=== PATIENT | male | born 1955 | race African-American/Black ===

== ENCOUNTER 2017-08-03 20:55 | Observation (INO) | payer MEDICAID ==
[~2017-08-03] VITALS: Ht 180.3 cm; Wt 100.0 kg
[~2017-08-03 20:55] MED LIST: ALBUAER3 INH; ASPI81TA11 PO; ATOR1TAB18 PO; BACL10TA PO; METO-309 PO; NAPR500 PO; NIFE1TAB86 PO; NITR1SUB3 SL; OXYC-395 PO
[2017-08-03 20:56] VITALS: BP 189/109; PULSE 83; RESP 20; TEMP 97.9; O2SAT 98
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
[2017-08-03 21:09] VITALS: BP 184/110; PULSE 59; RESP 18; TEMP 97.5; O2SAT 99
[2017-08-03 21:13] VITALS: BP 184/110; O2SAT 98
[2017-08-03] MEDS ORDERED: cloNIDine HCL 0.1 MG TAB PO ONE (21:15)
[2017-08-03] MEDS ORDERED: ONDANSETRON HCL 4 MG/2 ML VIAL IV PUSH ONE (21:15)
[2017-08-03] MEDS ORDERED: TICA1TAB PO (21:15)
[2017-08-03] MEDS ORDERED: SODIUM CHLORIDE 0.9% FLUSH 10 ML FLUSH IVF PRN (21:15)
[2017-08-03] MEDS ORDERED: MORPHINE SULFATE 4 MG/ML INJ IV PUSH ONE ×2 (21:15→22:15)
--- NOTE | 2017-08-03 21:36 | RADRPT ---
EXAM DATE/TIME: 08/03/2017 21:25 [facility] COMPARISON: CHEST SINGLE AP, November 07, 2016, 11:43. INDICATIONS : Chest pain MEDICAL HISTORY : Coronary artery disease. SURGICAL HISTORY : Pacemaker. Fusion, cervical. ENCOUNTER: Initial ACUITY: 1 day PAIN SCORE: 4/10 LOCATION: Bilateral chest FINDINGS: A single view of the chest demonstrates the lungs to be symmetrically aerated without evidence of mas s, infiltrate or effusion. The cardiomediastinal contours are unremarkable. Osseous structures are intact with stable degenerative spurring of the dorsal spine. Anterior fixation of the lower cervical spine. Left subclavian bipolar pacer is radiographically intact. CONCLUSION: No acute cardiopulmonary process. Mat Jose MD on August 03, 2017 at 21:34 Board Certified Radiologist. This report was verified electronically.
[2017-08-03 21:49] LABS: APTT (PATIENT) 25.5 SEC (24.3-30.1); INTERNATIONAL NORMALIZED RATIO 0.9 RATIO; PROTHROMBIN TIME - PATIENT 10.3 SEC (9.8-11.6)
[2017-08-03 21:51] LABS: ANION GAP 7 MEQ/L (5-15); AUTOMATED NEUTROPHIL # 2.7 TH/MM3 (1.8-7.7); BASOPHIL % 0.9 % (0.0-2.0); BICARBONATE 25.8 MEQ/L (21.0-32.0); BLOOD UREA NITROGEN 13 MG/DL (7-18); CHLORIDE 108 MEQ/L (98-107); EOSINOPHIL # 0.2 TH/MM3 (0-0.4); EOSINOPHIL % 3.4 % (0.0-4.0); GLOMERULAR FILTRATION RATE 93 ML/MIN (>89); HEMATOCRIT 41.5 % (39.0-51.0); HEMO FLAGS DIFF FINAL; LYMPH % 35.4 % (9.0-44.0); LYMPHOCYTE # 1.9 TH/MM3 (1.0-4.8); MAGNESIUM 2.1 MG/DL (1.5-2.5); MEAN CELL VOLUME 95.1 FL (80.0-100.0); MEAN CORPUSCULAR HEMOGLOBIN 32.2 PG (27.0-34.0); MEAN CORPUSCULAR HGB CONC 33.9 % (32.0-36.0); MONO % 9.9 % (0.0-8.0); NEUT % 50.4 % (16.0-70.0); PLATELET COUNT 175 TH/MM3 (150-450); RED BLOOD COUNT 4.37 MIL/MM3 (4.50-5.90); RED CELL DISTRIBUTION WIDTH 13.3 % (11.6-17.2); SODIUM (NA) 141 MEQ/L (136-145); WHITE BLOOD COUNT 5.3 TH/MM3 (4.0-11.0)
[2017-08-03 21:55] LABS: CREATINE KINASE 496 U/L (39-308)
[2017-08-03 22:25] VITALS: BP 170/80; PULSE 59; RESP 16; O2SAT 99
[2017-08-03] MEDS ORDERED: ONDANSETRON HCL 4 MG/2 ML VIAL IV PUSH PRN (23:00)
[2017-08-03] MEDS ORDERED: SODIUM CHLORIDE 0.9% FLUSH 10 ML FLUSH IV FLUSH PRN (23:00)
[2017-08-03 23:06] VITALS: O2SAT 98
[2017-08-04 01:24] LABS: CREATINE KINASE 385 U/L (39-308)
[2017-08-04 01:35] VITALS: BP 166/87; PULSE 84; RESP 18; TEMP 98.4; O2SAT 97
[2017-08-04 01:37] LABS: CKMB 3.6 NG/ML (0.5-3.6)
[2017-08-04 02:20] VITALS: PULSE 60
[2017-08-04] MEDS: NITROGLYCERIN 0.4 MG SL 25 TABS/BTL SL PRN ×2 (03:59→04:59)
[2017-08-04 04:01] VITALS: PULSE 60
[2017-08-04 04:15] LABS: CREATINE KINASE 389 U/L (39-308)
[2017-08-04 04:27] LABS: CKMB 3.9 NG/ML (0.5-3.6)
[2017-08-04 07:17] VITALS: BP 132/88; PULSE 60; RESP 16; TEMP 98.2; O2SAT 99
[2017-08-04] MEDS ORDERED: SODIUM CHLORIDE 0.9% FLUSH 10 ML FLUSH IV FLUSH SCH (09:00)
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
[2017-08-04] MEDS ORDERED: METOPROLOL TARTRATE 50 MG TAB PO SCH (10:00)
[2017-08-04] MEDS ORDERED: KETOROLAC TROMETHAMINE 30 MG/ML (IVP) VIAL IV PUSH ONE (10:00)
[2017-08-04] MEDS ORDERED: ATORVASTATIN 80 MG TAB PO SCH (10:00)
[2017-08-04] MEDS ORDERED: NIFEdipine 60 MG SUSTAINED RELEASE TAB PO SCH (10:00)
[2017-08-04] MEDS ORDERED: TICAGRELOR 60 MG TAB PO SCH (10:00)
[2017-08-04 10:17] VITALS: PULSE 63
[2017-08-04 11:42] VITALS: BP 131/86; PULSE 62; RESP 16; TEMP 97.6; O2SAT 98
--- NOTE | 2017-08-04 13:21 | HHI.DCPOC ---
Discharge Care Plan Diagnosis: (1) Musculoskeletal chest pain (2) Hx of coronary artery disease (3) Chronic back pain (4) Tobacco abuse (5) Hypertension Goals to Promote Your Health * To prevent worsening of your condition and complications * To maintain your health at the optimal level Directions to Meet Your Goals Take your medications as prescribed Follow your dietary instruction Follow activity as directed Keep your appointments as scheduled Take your immunizations and boosters as scheduled If your symptoms worsen call your PCP, if no PCP go to Urgent Care Center or Emergency Room Smoking is Dangerous to Your Health. Avoid second hand smoke Call the 24-hour hour crisis hotline for domestic abuse at Suzie Fontenot Aug 04, 2017 13:21
--- NOTE | 2017-08-04 13:29 | EKG ---
Date Performed: 08/04/2017 Time Performed: 03:30:05 PTAGE: 61 years EKG: ELECTRONIC ATRIAL PACEMAKER MARKED LEFT AXIS DEVIATION RIGHT VENTRICULAR CONDUCTION DELAY M ODERATE T-WAVE ABNORMALITY, CONSIDER LATERAL ISCHEMIA NON SPECIFIC T WAVE ABNORMALITY, CONSIDER INFER IOR WALL ISCHEMIA ABNORMAL ECG WITH NO SIG CHANGE PREVIOUS TRACING : 08/04/2017 00.24 DOCTOR: Neville Patel Interpretating Date/Time 08/04/2017 13:29:11
--- NOTE | 2017-08-04 13:29 | EKG ---
Date Performed: 08/04/2017 Time Performed: 00:24:03 PTAGE: 61 years EKG: ELECTRONIC ATRIAL PACEMAKER MARKED LEFT AXIS DEVIATION INCOMPLETE RIGHT BUNDLE BRANCH BLOCK MODERATE T-WAVE ABNORMALITY, CONSIDER LATERAL ISCHEMIA MODERATE T-WAVE ABNORMALITY, CONSIDER INFERIO R ISCHEMIA ABNORMAL EKG AGREE BUT NO SIG CHANGE PREVIOUS TRACING : 08/03/2017 21.05 DOCTOR: Neville Patel Interpretating Date/Time 08/04/2017 13:27:14
--- NOTE | 2017-08-04 13:29 | EKG ---
Date Performed: 08/03/2017 Time Performed: 21:05:03 PTAGE: 61 years EKG: ELECTRONIC ATRIAL PACEMAKER MARKED LEFT AXIS DEVIATION POSSIBLE RIGHT VENTRICULAR CONDUCTIO N DELAY NONSPECIFIC T-WAVE ABNORMALITY ABNORMAL ECG AGREE WITH NO SIG CHANGE PREVIOUS TRACING : 11/07/2016 17.23 DOCTOR: Neville Patel Interpretating Date/Time 08/04/2017 13:27:47
== END 2017-08-04 14:51 | disposition home or self-care (01) ==
LOC: NEPE 20:55 → NEDA 22:06 → NEPFCDU 23:03
PROVIDERS: ADMIT Internal Medicine Interventional Cardiology; ATTEND Internal Medicine Interventional Cardiology
DX: R07.89 Other chest pain (principal); I25.10 Atherosclerotic heart disease of native coronary artery without angina pectoris; R42 Dizziness and giddiness; R11.0 Nausea; E78.00 Pure hypercholesterolemia, unspecified; H40.9 Unspecified glaucoma; I10 Essential (primary) hypertension; G89.29 Other chronic pain; M54.9 Dorsalgia, unspecified; F17.200 Nicotine dependence, unspecified, uncomplicated; Z95.5 Presence of coronary angioplasty implant and graft
CPT/HCPCS: 71010; 80048; 82550; 82552; 83735; 84484; 85025; 85610; 85730; 93005; 96374; 96375; 96376; 99285; G0378; J1885; J2270; J2405

== ENCOUNTER 2017-08-08 10:28 | Emergency (ER) | payer MEDICAID ==
[~2017-08-08] VITALS: Ht 180.3 cm; Wt 100.0 kg
[~2017-08-08 10:28] MED LIST changes: -ALBUAER3 INH; -BACL10TA PO; +TICA1TAB PO
[2017-08-08 10:29] VITALS: BP 164/100; PULSE 66; RESP 17; TEMP 98.4; O2SAT 98
[2017-08-08] MEDS ORDERED: GADODIAMIDE PF 287 MG/ML 20 ML VIAL (for RAD MRI) IV PUSH ONE (10:29)
[2017-08-08] MEDS ORDERED: MORPHINE SULFATE 4 MG/ML INJ IV PUSH ONE (11:30)
[2017-08-08] MEDS ORDERED: ONDANSETRON HCL 4 MG/2 ML VIAL IV PUSH ONE (11:30)
[2017-08-08 11:31] VITALS: BP 128/79; PULSE 59; RESP 16; O2SAT 100
--- NOTE | 2017-08-08 11:45 | PD ---
HPI Chief Complaint: Complaint Time Seen by Provider: 11:14 Travel History International Travel<30 days: No Contact w/Intl Traveler<30days: No Traveled to known affect area: No History of Present Illness HPI 61-year-old male presents to the emergency department for evaluation of urinary and bowel incontinence as started approximately 2 days ago. Patient does state that he has high urinary consult past, but never like this before for. He states that he usually he would have the urge to go. However, he has no urge and will just urinated in his pants. The patient states he has had 2 surgeries on his C-spine and L-spine. He reports hardware in his back. He states his neurosurgeon is in [place]. Patient states his back pain has been worsening and reports increasing weakness in his right lower extremity. Patient denies any fevers or chills. No chest pain or shortness breath. No abdominal pain, nausea, vomiting, diarrhea. Patient denies any history of IV drug use. He does report history of [place], cardiac pacemaker, hypertension. He states that he has had an MRI since having his pacemaker and. He has the card for his pacemaker [employer] will be notified. PFSH Past Medical History Hx Anticoagulant Therapy: Yes Heart Rhythm Problems: No Cardiac Catheterization: Yes Cardiovascular Problems: Yes High Cholesterol: Yes Chest Pain: Yes Congestive Heart Failure: No Diabetes: No Glaucoma: Yes Heparin Induced Thrombocytopen: No Hypertension: Yes Tetanus Vaccination: > 5 Years Influenza Vaccination: Yes Past Surgical History Abdominal Surgery: Yes (hernia) Cardiac Surgery: Yes (pacer) Coronary Artery Bypass Graft: No Coronary Stent: Yes Pacemaker: Yes Family History Family Myocardial Infarction: Yes (FATHER) Social History Alcohol Use: No Tobacco Use: Yes (2 cigs/day) Substance Use: Yes (marijuana occasionally) Allergies-Medications (Allergen,Severity, Reaction): Coded Allergies: acetaminophen (Unverified Allergy, Unknown, 08/08/17) pt states "they say my liver is acting up so they dont want me taking tylenol" Reported Meds & Prescriptions Reported Meds & Active Scripts Active Reported Brilinta (Ticagrelor) 60 Mg Tab 40 Mg PO DAILY Aspirin EC (Aspirin) 81 Mg Tabdr 81 Mg PO DAILY Oxycodone (Oxycodone HCl) 10 Mg Tab 10 Mg PO Q6HR Nitroglycerin SL (Nitroglycerin) 0.4 Mg Subl 0.4 Mg SL DIRECTED PRN ONE TABLET UNDER THE TONGUE NEEDED FOR CHEST PAIN, MAY REPEAT EVERY FIVE MINUTES FOR A TOTAL OF 3 DOSES OR CALL 911 IF NO RELIEF Atorvastatin (Atorvastatin Calcium) 80 Mg Tab 80 Mg PO DAILY Lopressor (Metoprolol Tartrate) 50 Mg Tab 50 Mg PO BID Procardia XL (Nifedipine) 60 Mg Tab 60 Mg PO DAILY Review of Systems Except as stated in HPI: all other systems reviewed are Neg Physical Exam Narrative GENERAL: Well-nourished, well-developed male patient, afebrile. SKIN: Focused skin assessment warm/dry. HEAD: Normocephalic. Atraumatic. EYES: No scleral icterus. No injection or drainage. NECK: Supple, trachea midline. No JVD or lymphadenopathy. CARDIOVASCULAR: Regular rate and rhythm without murmurs, gallops, or rubs. RESPIRATORY: Breath sounds equal bilaterally. No accessory muscle use. Lungs sounds are clear to auscultation. GASTROINTESTINAL: Abdomen soft, non-tender, nondistended. MUSCULOSKELETAL: No cyanosis, or edema. Bilateral upper lower extremity strength 5/5. BACK: Nontender without obvious deformity. No CVA tenderness. Patient has tenderness to palpation of the midline cervical, thoracic, lumbar spine. RECTAL EXAM: No masses or tenderness, stool is brown. Rectal tone is diminished when patient is asked to squeeze. Data Data Last Documented VS Vital Signs Date Time Temp Pulse Resp B/P (MAP) Pulse Ox O2 Delivery O2 Flow Rate FiO2 08/08/17 16:53 72 18 151/90 (110) 99 08/08/17 12:24 Room Air 08/08/17 10:29 98.4 Orders Orders Ecg Monitoring (08/08/17 11:28) Iv Access Insert/Monitor (08/08/17 11:28) Oximetry (08/08/17 11:28) Act Partial Throm Time (Ptt) (08/08/17 11:28) Complete Blood Count With Diff (08/08/17 11:28) Comprehensive Metabolic Panel (08/08/17 11:28) Prothrombin Time / Inr (Pt) (08/08/17 11:28) Urinalysis - C+S If Indicated (08/08/17 11:28) Cath For Specimen (08/08/17 11:28) Ondansetron Inj (Zofran Inj) (08/08/17 11:30) Morphine Inj (Morphine Inj) (08/08/17 11:30) Mri C Spine W&W/O Contrast (08/08/17 ) Mri L Spine W&W/O Contrast (08/08/17 ) Mri T Spine W & W/O Contrast (08/08/17 ) Gadodiamide Pf Inj (Omniscan Pf Inj) (08/08/17 10:29) Radiology Film Requests (08/08/17 ) Labs Laboratory Tests Test 08/08/17 11:26 08/08/17 11:50 White Blood Count 5.5 TH/MM3 Red Blood Count 4.43 MIL/MM3 Hemoglobin 14.1 GM/DL Hematocrit 41.4 % Mean Corpuscular Volume 93.5 FL Mean Corpuscular Hemoglobin 31.9 PG Mean Corpuscular Hemoglobin Concent 34.1 % Red Cell Distribution Width 13.4 % Platelet Count 179 TH/MM3 Mean Platelet Volume 8.7 FL Neutrophils (%) (Auto) 62.3 % Lymphocytes (%) (Auto) 25.2 % Monocytes (%) (Auto) 8.2 % Eosinophils (%) (Auto) 3.5 % Basophils (%) (Auto) 0.8 % Neutrophils # (Auto) 3.5 TH/MM3 Lymphocytes # (Auto) 1.4 TH/MM3 Monocytes # (Auto) 0.5 TH/MM3 Eosinophils # (Auto) 0.2 TH/MM3 Basophils # (Auto) 0.0 TH/MM3 CBC Comment DIFF FINAL Differential Comment Prothrombin Time 10.3 SEC Prothromb Time International Ratio 0.9 RATIO Activated Partial Thromboplast Time 26.1 SEC Blood Urea Nitrogen 10 MG/DL Creatinine 0.96 MG/DL Random Glucose 95 MG/DL Total Protein 8.5 GM/DL Albumin 4.2 GM/DL Calcium Level 9.1 MG/DL Alkaline Phosphatase 80 U/L Aspartate Amino Transf (AST/SGOT) 32 U/L Alanine Aminotransferase (ALT/SGPT) 23 U/L Total Bilirubin 0.3 MG/DL Sodium Level 142 MEQ/L Potassium Level 4.1 MEQ/L Chloride Level 108 MEQ/L Carbon Dioxide Level 27.1 MEQ/L Anion Gap 7 MEQ/L Estimat Glomerular Filtration Rate 96 ML/MIN Urine Color YELLOW Urine Turbidity CLEAR Urine pH 7.0 Urine Specific [place] 1.017 Urine Protein NEG mg/dL Urine Glucose (UA) NEG mg/dL Urine Ketones NEG mg/dL Urine Occult Blood NEG Urine Nitrite NEG Urine Bilirubin NEG Urine Urobilinogen 2.0 MG/DL Urine Leukocyte Esterase NEG Urine RBC 3 /hpf Urine WBC 2 /hpf Urine Squamous Epithelial Cells <1 /hpf Microscopic Urinalysis Comment CATH-CULT NOT IND MDM Medical Decision Making Medical Screen Exam Complete: Yes Emergency Medical Condition: Yes Medical Record Reviewed: Yes Differential Diagnosis Cauda equina syndrome versus acute exacerbation of chronic back pain versus UTI versus vaginal abnormality versus spinal abscess Narrative Course 61-year-old male presents to the emergency department for evaluation of of bowel and bladder incontinence for approximately 2 days with increasing back pain and neck pain. CBC, CMP, PTT, PT/INR, UA are ordered and pending. MRI of the C-spine, T-spine, L-spine are ordered and pending. Patient is given morphine 4 mg IV and Zofran 4 mg IV for pain. CBC shows no acute abnormality. CMP shows no acute abnormality. Coags are unremarkable. UA is negative. [employer] rep is at bedside and needed orders for pacemaker during MRI. 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 Patient was able to urinate in the urinal for the UA. He refused to be catheterized. Post void residual with bladder scanner will be done. Post void residual is 26 ml per RN. MRI of the C-Spine shows extensive postsurgical changes within the cervical spine. There has been laminectomy from C3 down to C6. There is anterior fusion at C6-7; The cord is quite atrophic across the C3-C4 disc level; The individual levels are dictated in detail above. MRI of the T-Spine shows Mild central canal stenosis at the T2-3, T10-11 and T12-L1 levels. secondary to disc bulges. MRI of the L-Spine shows 1. Severe left neural foraminal narrowing and moderate right neural foraminal narrowing at L5-S1 secondary to diffuse asymmetric disc osteophyte complex to the left and marked facet joint hypertrophy bilaterally; 2. Moderate spinal stenosis and mild bilateral foraminal narrowing at L1-2; 3. Mild spinal stenosis at L5-S1 and T12-L1; 4. Status post lumbar fusion from L2 through L5; 5. Mild bilateral foraminal narrowing at L2-3 and L4-5; 6. Extensive facet joint hypertrophy bilaterally from T12 through S1; 7. No focal disc herniation. My attending physician, Dr. Varma, reviewed all MRI results. She recommends outpatient follow up with neurosurgeon. Patient has not had any episodes of incontinence since being in the ED, over 6 hours. Patient verbalizes agreement and understanding. He is given copies of MRI results as well as CD of the imaging to take for follow up. He verbalizes agreement and understanding. The patient was discharged in stable condition with instructions, including return instructions and follow up instructions. Diagnosis Primary Impression: Chronic back pain Qualified Codes: M54.9 - Dorsalgia, unspecified; G89.29 - Other chronic pain Referrals: Neurosurgeon call for appointment Patient Instructions: Back Pain (ED), General Instructions Additional Instructions: Follow up with neurosurgeon. Return to the emergency department for any acute, worsening of symptoms. Med/Other Pt SpecificInfo: No Change to Meds Disposition: 01 DISCHARGE HOME Condition: Stable Kira Valles Aug 08, 2017 11:45
[2017-08-08 11:51] LABS: AUTOMATED NEUTROPHIL # 3.5 TH/MM3 (1.8-7.7); BASOPHIL % 0.8 % (0.0-2.0); EOSINOPHIL # 0.2 TH/MM3 (0-0.4); EOSINOPHIL % 3.5 % (0.0-4.0); HEMATOCRIT 41.4 % (39.0-51.0); HEMO FLAGS DIFF FINAL; LYMPH % 25.2 % (9.0-44.0); LYMPHOCYTE # 1.4 TH/MM3 (1.0-4.8); MEAN CELL VOLUME 93.5 FL (80.0-100.0); MEAN CORPUSCULAR HEMOGLOBIN 31.9 PG (27.0-34.0); MEAN CORPUSCULAR HGB CONC 34.1 % (32.0-36.0); MONO % 8.2 % (0.0-8.0); NEUT % 62.3 % (16.0-70.0); PLATELET COUNT 179 TH/MM3 (150-450); RED BLOOD COUNT 4.43 MIL/MM3 (4.50-5.90); RED CELL DISTRIBUTION WIDTH 13.4 % (11.6-17.2); WHITE BLOOD COUNT 5.5 TH/MM3 (4.0-11.0)
[2017-08-08 12:00] LABS: APTT (PATIENT) 26.1 SEC (24.3-30.1); INTERNATIONAL NORMALIZED RATIO 0.9 RATIO; PROTHROMBIN TIME - PATIENT 10.3 SEC (9.8-11.6)
[2017-08-08 12:06] LABS: BLOOD, URINE NEG (NEG); COMMENT (UR) CATH-CULT NOT IND; CULTURE IF INDICATED CATH CULTURE NOT IND; GLUCOSE,URINE NEG (NEG); KETONE, URINE NEG (NEG); NITRITE,URINE NEG (NEG); SQUAMOUS EPITHELIAL CELL URINE <1 /hpf (0-5); URINE COLOR YELLOW (YELLW/STRAW)
[2017-08-08 12:10] LABS: ALKALINE PHOSPHATASE 80 U/L (45-117); TOTAL BILIRUBIN ADULT 0.3 MG/DL (0.2-1.0)
[2017-08-08 12:24] VITALS: BP 168/99; PULSE 59; RESP 18; O2SAT 99
[2017-08-08 12:28] LABS: ALT (GPT) 23 U/L (12-78); ANION GAP 7 MEQ/L (5-15); AST (GOT) 32 U/L (15-37); BICARBONATE 27.1 MEQ/L (21.0-32.0); BLOOD UREA NITROGEN 10 MG/DL (7-18); CHLORIDE 108 MEQ/L (98-107); GLOMERULAR FILTRATION RATE 96 ML/MIN (>89); POTASSIUM 4.1 MEQ/L (3.5-5.1); SODIUM (NA) 142 MEQ/L (136-145)
--- NOTE | 2017-08-08 16:30 | RADRPT ---
EXAM DATE/TIME: 08/08/2017 14:19 [facility] COMPARISON: No previous studies available for comparison. INDICATIONS : Pain. CONTRAST: 20 cc Omniscan (gadodiamide) IV MEDICAL HISTORY : Hypercholesterolemia. Hypertension. SURGICAL HISTORY : Pacemaker. Fusion, cervical. Fusion, lumbar. ENCOUNTER: Initial ACUITY: 2 day PAIN SCORE: 5/10 LOCATION: neck TECHNIQUE: Multiplanar, multisequence MRI examination of the cervical spine was performed. FINDINGS: T1, T2 and postcontrast T1-weighted imaging is provided. The sagittal imaging demonstrates severely degenerated discs throughout the cervical spine. There is been previous laminectomy from C2 down to C6. There is anterior cervical fusion at the C6-7 level. No significant abnormal enhancement is identified. The exam demonstrates a small syrinx within the central cord immediately posterior to the C3-4 disc l evel and extending down to the inferior endplate of C4. This measures only approximately 1-2 mm. The cord is atrophic through this area. C2-C3: There is a severely degenerated disc with broad-based disc protrusion and osteophytic ridging. This i s eccentric cord the right. There is uncal vertebral osteophyte and disc protrusion which effaces the lateral recess and encroach upon the neural foramina on the right. The foramina on the left is adequ ate. The residual thecal space is adequate. There is facet arthritis bilaterally. C3-C4: There is broad-based disc bulge and diffuse osteophytic ridging. There is uncovertebral osteophyte ef facing the lateral recess and foraminal bilaterally. There is moderate to severe bilateral foraminal narrowing. The patient is post laminectomy. C4-C5: There is a degenerated disc with osteophytic ridging and a small disc bulge. This effaces the ventral thecal sac. There is mild bony foraminal narrowing bilaterally. The residual thecal space is adequat e. The cord is atrophic across this level. C5-C6: The thecal space and foramina are adequate. There has been laminectomy at this level. C6-C7: There is been previous laminectomy at this level. The thecal space and foramina appear adequate. C7-T1: The thecal space and foramina are adequate. There is mild facet arthritis bilaterally. CONCLUSION: 1. Extensive postsurgical changes within the cervical spine. There has been laminectomy from C3 down to C6. There is anterior fusion at C6-7. 2. The cord is quite atrophic across the C3-C4 disc level. 3. The individual levels are dictated in detail above. Evan Mckeon MD on August 08, 2017 at 16:22 Board Certified Radiologist. This report was verified electronically.
--- NOTE | 2017-08-08 16:38 | RADRPT ---
EXAM DATE/TIME: 08/08/2017 14:19 [facility] COMPARISON: No previous studies available for comparison. INDICATIONS : Pain. Back pain with incontinence. CONTRAST: 20 cc Omniscan (gadodiamide) IV MEDICAL HISTORY : Hypercholesterolemia. Hypertension. SURGICAL HISTORY : Fusion, cervical. Pacemaker. Fusion, lumbar. ENCOUNTER: Initial ACUITY: 2 day PAIN SCORE: 6/10 LOCATION: Back TECHNIQUE: Multiplanar multisequence MRI of the lumbar spine was performed with and without contrast. FINDINGS: The patient is status post posterior lumbar fusion from L2 through L5. Cage is noted at L4-5. There is loss of disc height and signal intensity within all lumbar disc spaces consistent with degenerati ve disc disease. There is no acute compression fracture or marrow infiltration. T12-L1: Mild circumferential spinal stenosis is noted secondary to minimal diffuse osteophyte complex, facet joint hypertrophy and ligamentous laxity. No neural foraminal narrowing is noted. L1-L2: There is moderate circumferential spinal stenosis and mild bilateral foraminal narrowing secondary to diffuse disc osteophyte complex, facet joint hypertrophy and ligamentous laxity. No focal disc estiven iation is noted. L2-L3: There is mild diffuse disc osteophyte complex but no spinal stenosis or focal disc herniation. Mild bilateral foraminal narrowing is noted secondary to facet joint hypertrophy bilaterally. L3-L4: There is a mild diffuse disc osteophyte complex which results in no spinal stenosis or neural foramin al narrowing. No focal disc herniation is noted. L4-L5: There is a mild diffuse disc osteophyte complex which results in no spinal stenosis. No focal disc h erniation is noted. The bilateral neural foramina are minimally narrowed at this level. L5-S1: There is severe left neural foraminal narrowing and moderate right neural foraminal narrowing seconda ry to diffuse asymmetric disc osteophyte complex to the left and facet joint hypertrophy bilaterally. No focal disc herniation is noted. Mild spinal stenosis is noted at this level. CONCLUSION: 1. Severe left neural foraminal narrowing and moderate right neural foraminal narrowing at L5-S1 seco ndary to diffuse asymmetric disc osteophyte complex to the left and marked facet joint hypertrophy bi laterally. 2. Moderate spinal stenosis and mild bilateral foraminal narrowing at L1-2. 3. Mild spinal stenosis at L5-S1 and T12-L1. 4. Status post lumbar fusion from L2 through L5. 5. Mild bilateral foraminal narrowing at L2-3 and L4-5. 6. Extensive facet joint hypertrophy bilaterally from T12 through S1. 7. No focal disc herniation. Regan Casanova MD on August 08, 2017 at 16:18 Board Certified Radiologist. This report was verified electronically.
--- NOTE | 2017-08-08 16:48 | RADRPT ---
EXAM DATE/TIME: 08/08/2017 14:19 [facility] COMPARISON: No previous studies available for comparison. INDICATIONS : Pain. CONTRAST: 20 cc Omniscan (gadodiamide) IV MEDICAL HISTORY : Hypercholesterolemia. Hypertension. SURGICAL HISTORY : Pacemaker. Fusion, cervical. Fusion, lumbar. ENCOUNTER: Initial ACUITY: 2 day PAIN SCORE: 3/10 LOCATION: Back TECHNIQUE: Multiplanar multisequence MRI of the thoracic spine was performed. FINDINGS: VERTEBRA: Normal vertebral body height. Homogeneous marrow signal. ALIGNMENT: Normal. DISCS: Disc changes are present on the sagittal images. CORD: Normal position and configuration. POST CONTRAST: No abnormal areas of contrast enhancement seen. T1-T2: The thecal sac has a normal diameter. No evidence of disc bulge or protrusion. T2-T3: There is a mild to moderate annular disc bulge with mild flattening of the anterior thecal sac and no mass effect on the distal cord. There is minimal residual CSF space present. The residual AP diamete r of the canal measures approximately 7-8 mm. T3-T4: The thecal sac has a normal diameter. No evidence of disc bulge or protrusion. T4-T5: The thecal sac has a normal diameter. No evidence of disc bulge or protrusion. T5-T6: The thecal sac has a normal diameter. No evidence of disc bulge or protrusion. T6-T7: The thecal sac has a normal diameter. No evidence of disc bulge or protrusion. T7-T8: The thecal sac has a normal diameter. No evidence of disc bulge or protrusion. T8-T9: The thecal sac has a normal diameter. No evidence of disc bulge or protrusion. T9-T10: The thecal sac has a normal diameter. No evidence of disc bulge or protrusion. T10-T11: There is a mild to moderate annular disc bulge with mild flattening of the anterior thecal sac and no mass effect on the distal cord. There is minimal residual CSF space present. The residual AP diamete r of the canal measures approximately 7-8 mm. T11-T12: The thecal sac has a normal diameter. No evidence of disc bulge or protrusion. T12-L1: There is a mild to moderate annular disc bulge with mild flattening of the anterior thecal sac and no mass effect on the distal cord. There is minimal residual CSF space present. The residual AP diamete r of the canal measures approximately 7-8 mm. CONCLUSION: Mild central canal stenosis at the T2-3, T10-11 and T12-L1 levels. secondary to disc bulges. Mushtaq Mack MD on August 08, 2017 at 16:42 Board Certified Radiologist. This report was verified electronically.
[2017-08-08 16:53] VITALS: BP 151/90; PULSE 72; RESP 18; O2SAT 99
== END 2017-08-08 18:23 | disposition home or self-care (01) ==
LOC: NEPE 10:28
DX: M54.9 Dorsalgia, unspecified (principal); G89.29 Other chronic pain; M48.04 Spinal stenosis, thoracic region; M48.07 Spinal stenosis, lumbosacral region; M54.2 Cervicalgia; I10 Essential (primary) hypertension; E78.00 Pure hypercholesterolemia, unspecified; H40.9 Unspecified glaucoma; F17.210 Nicotine dependence, cigarettes, uncomplicated
CPT/HCPCS: 72156; 72157; 72158; 80053; 81001; 85025; 85610; 85730; 96374; 96375; 99285; A9579; J2270; J2405

== ENCOUNTER 2017-08-14 22:14 | Emergency (ER) | payer MEDICAID ==
[~2017-08-14] VITALS: Ht 180.3 cm; Wt 101.0 kg
[~2017-08-14 22:14] MED LIST changes: -NAPR500 PO
[2017-08-14 22:27] VITALS: BP 179/96; PULSE 62; RESP 18; TEMP 98; O2SAT 95
--- NOTE | 2017-08-14 22:50 | PD ---
HPI Chief Complaint: Pain: Acute or Chronic Time Seen by Provider: 22:23 Travel History International Travel<30 days: No Contact w/Intl Traveler<30days: No Traveled to known affect area: No History of Present Illness HPI 61-year-old male complains of burning sensation from the elbow to the left forearm and from the left hip down the left leg. Patient states that the symptoms started this afternoon. Patient denies any injury. Patient denies any headache. Patient has chronic neck and back pain. Patient was admitted to the chest pain center on August 04 and workup is negative. Patient was seen in emergency room on August 08 for evaluation of urinary in bowel incontinence isn't had MRI of the cervical thoracic lumbar spine and blood tests and was discharged. Patient has history of CAD status post stents placement and pacemaker placement. Patient also has history hypertension, spinal stenosis resulting in chronic neck and back pain. Patient denies any recent injury. PFSH Past Medical History Hx Anticoagulant Therapy: Yes Heart Rhythm Problems: No Cardiac Catheterization: Yes Cardiovascular Problems: Yes High Cholesterol: Yes Chest Pain: Yes Congestive Heart Failure: No Diabetes: No Glaucoma: Yes Heparin Induced Thrombocytopen: No Hypertension: Yes Medical other: Yes (SPINAL STENOSIS) Past Surgical History Abdominal Surgery: Yes (hernia) Cardiac Surgery: Yes (pacer) Coronary Artery Bypass Graft: No Coronary Stent: Yes Pacemaker: Yes Family History Family Myocardial Infarction: Yes (FATHER) Social History Alcohol Use: No Tobacco Use: Yes (2 cigs/day) Substance Use: Yes (marijuana occasionally) Allergies-Medications (Allergen,Severity, Reaction): Coded Allergies: acetaminophen (Unverified Allergy, Unknown, 08/14/17) pt states "they say my liver is acting up so they dont want me taking tylenol" Reported Meds & Prescriptions Reported Meds & Active Scripts Active Reported Brilinta (Ticagrelor) 60 Mg Tab 40 Mg PO DAILY Aspirin EC (Aspirin) 81 Mg Tabdr 81 Mg PO DAILY Oxycodone (Oxycodone HCl) 10 Mg Tab 10 Mg PO Q6HR Nitroglycerin SL (Nitroglycerin) 0.4 Mg Subl 0.4 Mg SL DIRECTED PRN ONE TABLET UNDER THE TONGUE NEEDED FOR CHEST PAIN, MAY REPEAT EVERY FIVE MINUTES FOR A TOTAL OF 3 DOSES OR CALL 911 IF NO RELIEF Atorvastatin (Atorvastatin Calcium) 80 Mg Tab 80 Mg PO DAILY Lopressor (Metoprolol Tartrate) 50 Mg Tab 50 Mg PO BID Procardia XL (Nifedipine) 60 Mg Tab 60 Mg PO DAILY Review of Systems General / Constitutional: No: Fever Eyes: No: Visual changes HENT: Positive: Neck Pain, No: Headaches Cardiovascular: No: Chest Pain or Discomfort Respiratory: No: Shortness of Breath Gastrointestinal: No: Abdominal Pain Genitourinary: No: Dysuria Musculoskeletal: No: Pain Skin: No Rash Neurologic: No: Weakness Psychiatric: No: Depression Endocrine: No: Polydipsia Hematologic/Lymphatic: No: Easy Bruising Physical Exam Narrative GENERAL: Well-nourished, well-developed patient. SKIN: Focused skin assessment warm/dry. HEAD: Normocephalic. EYES: No scleral icterus. No injection or drainage. NECK: Supple, trachea midline. No JVD or lymphadenopathy. CARDIOVASCULAR: Regular rate and rhythm without murmurs, gallops, or rubs. RESPIRATORY: Breath sounds equal bilaterally. No accessory muscle use. GASTROINTESTINAL: Abdomen soft, non-tender, nondistended. MUSCULOSKELETAL: No cyanosis, or edema. BACK: Nontender without obvious deformity. No CVA tenderness. Neurologic exam normal. Data Data Last Documented VS Vital Signs Date Time Temp Pulse Resp B/P (MAP) Pulse Ox O2 Delivery O2 Flow Rate FiO2 08/14/17 22:27 98.0 62 18 179/96 (123) 95 Room Air MDM Medical Decision Making Medical Screen Exam Complete: Yes Emergency Medical Condition: Yes Differential Diagnosis Differential diagnosis including neuralgia, neuropathy. Narrative Course 61-year-old male with pain radiation from elbow to left forearm and left hip to left leg. Diagnosis Primary Impression: Neuralgia Patient Instructions: General Instructions Additional Instructions: Continue all medications. Follow-up with personal physician. Med/Other Pt SpecificInfo: No Change to Meds Disposition: 01 DISCHARGE HOME Condition: Stable Neftali Mccoy MD Aug 14, 2017 22:50
== END 2017-08-14 22:56 | disposition home or self-care (01) ==
LOC: NEPD 22:14
DX: M79.2 Neuralgia and neuritis, unspecified (principal)
CPT/HCPCS: 99282